=== PATIENT | male | born 1995 | race Hispanic/Latino ===

== ENCOUNTER → 2017-08-29 | Day surgery (SDC) | payer OTHER ==
[2017-08-27 13:53] LABS: BASOPHILS % 0.3 % (0.0-1.0); EOSINOPHILS # (AUTO) 0.3 (0.0-0.4); EOSINOPHILS % 4.3 % (0.0-6.0); HEMATOCRIT 39.6 % (38.2-49.6); HEMOGLOBIN 14.5 g/dL (14.0-18.0); LYMPHOCYTES # (AUTO) 2.2 (1.0-3.2); LYMPHOCYTES % 37.4 % (18.0-39.1); MEAN CORPUSCULAR HEMOGLOBIN 30.4 pg (28-32); MEAN CORPUSCULAR HGB CONC 36.6 g/dL (31-35); MONOCYTES # (AUTO) 0.5 (0.2-0.8); MONOCYTES % 8.2 % (4.4-11.3); NEUTROPHILS # (AUTO) 2.9 (2.1-6.9); NEUTROPHILS % 49.6 % (38.7-80.0); PLATELET COUNT 135 x10e3/uL (140-360); RED BLOOD COUNT 4.77 x10e6/uL (4.3-5.7); RED CELL DISTRIBUTION WIDTH 12.9 % (11.7-14.4)
[2017-08-27 14:00] LABS: CLARITY,URINE CLEAR (CLEAR); COLOR,URINE YELLOW (YELLOW)
[2017-08-27 14:02] LABS: KETONES,URINE NEGATIVE (NEGATIVE); LEUKOCYTE ESTERASE ,URINE NEGATIVE (NEGATIVE); NITRITE,URINE NEGATIVE (NEGATIVE); PROTEIN,URINE DIPSTICK NEGATIVE (NEGATIVE); URINE UROBILINOGEN 1 mg/dL (0.2 - 1)
[2017-08-27 14:03] LABS: BILIRUBIN,URINE NEGATIVE (NEGATIVE)
[2017-08-27 14:16] LABS: ALANINE AMINOTRANSFERASE 22 IU/L (0-55); ALBUMIN 4.3 g/dL (3.5-5.0); ALBUMIN/GLOBULIN RATIO 1.4 (0.8-2.0); ALKALINE PHOSPHATASE 65 IU/L (40-150); ANION GAP 12.7 mmol/L (8-16); BLOOD UREA NITROGEN 13 mg/dL (7-26); BUN/CREATININE RATIO 16 (6-25); CALCIUM 9.3 mg/dL (8.4-10.2); CARBON DIOXIDE 29 mmol/L (22-29); CHLORIDE 103 mmol/L (98-107); CREATININE, SERUM 0.81 mg/dL (0.72-1.25); EST GLOMERULAR FILTRATION RATE > 60 ML/MIN (60-); GLUCOSE 98 mg/dL (74-118); POTASSIUM 4.7 mmol/L (3.5-5.1); SODIUM 140 mmol/L (136-145)
[~2017-08-29] MED LIST: BUPIVACAINE 0.25%/EPI 30ML SDV INJ ONE; DEXAMETHASONE SOD PHOS INJ 4 MG/ML VIAL ONE; FENTANYL CITRATE/PF 100MCG/2 ML INJ ONE; GLYCOPYRROLATE INJ 1MG/ 5 ML SYR ONE; KETOROLAC TROMETHAMINE 30 MG/ML VIAL ONE; LIDOCAINE HCL 2% LOCAL INJ 5 ML SDV VIAL INJ ONE; MIDAZOLAM HCL 2 MG/2 ML VIAL ONE; NEOSTIGMINE 5 MG/5ML SYR ONE; ONDANSETRON HCL INJ 2 MG/ML VIAL ONE; PROPOFOL IV EMULSION 10 MG/ML 20 ML VIAL ONE; ROCURONIUM BROMIDE 10 MG/ML 5ML VIAL ONE; SEVOFLURANE INHAL SOLN 250 ML PEN BTL ONE
--- NOTE | 2017-08-29 10:54 | Operative Report ---
DATE OF PROCEDURE: August 29, 2017 PREOPERATIVE DIAGNOSIS: Cholecystitis and cholelithiasis. POSTOPERATIVE DIAGNOSIS: Cholecystitis and cholelithiasis. OPERATION PERFORMED: Laparoscopic cholecystectomy. CAMERA SUPERVISOR: JONES Delaney. ANESTHESIA: General. COMPLICATIONS: None. ESTIMATED BLOOD LOSS: Minimal. DESCRIPTION OF PROCEDURE: With the patient lying in bed in the supine position, under good general endotracheal anesthesia, the abdomen was prepped with Betadine solution and draped in the usual manner. A Veress needle was introduced into the umbilicus, and pneumoperitoneum was established without any difficulty. An 11-mm trocar was placed into the umbilicus, and a 10-mm video laparoscope was placed into the intra-abdominal cavity. Under direct vision, three more 5-mm trocars were placed in the right subcostal region. Video laparoscopy at this point revealed a distended gallbladder that was covered in adhesions and contained some stones. The rest of the abdominal exploration was otherwise within normal limits. All of the adhesions of the gallbladder were then slowly and carefully taken down. The peritoneum overlying the neck of the gallbladder was then opened, and the cystic duct was identified. The cystic duct was followed to its junction with the common duct. The cystic duct was then circumferentially dissected away from the common duct, doubly clipped and divided. The cystic artery was similarly doubly clipped and divided. The gallbladder was then slowly and carefully taken off the liver bed using the cautery scissors, and perfect hemostasis was ascertained. The gallbladder was grasped through the umbilical port and removed without any difficulty. Video laparoscopy was then again carried out. The liver bed was found to perfectly dry. All of the excess fluid was aspirated. The pneumoperitoneum was evacuated, and all the trocars were removed under direct vision. The midline fascia at the umbilicus was then closed with a [id number] of #0 Vicryl. All layers were infiltrated on the way out with a solution of 1/4 percent Marcaine. Subcutaneous tissue was approximated with 3-0 Vicryl, and the skin was closed with subcuticular 5-0 Vicryl. Benzoin, Steri-Strips and Band-Aids were applied. Sponge, lap and needle count was correct. Patient tolerated the procedure well and returned to the recovery room in stable condition. Job#: [id number]
== END | disposition home or self-care (01) ==
LOC: OR 05:30
PROVIDERS: ATTEND Surgery
DX: K80.10 Calculus of gallbladder with chronic cholecystitis without obstruction (principal); K82.8 Other specified diseases of gallbladder; Z01.812 Encounter for preprocedural laboratory examination
CPT/HCPCS: 36415; 47562; 80053; 81003; 85025; 88304; C1766; J1100; J1885; J2001; J2250; J2405; J3490